=== PATIENT | female | born 1950 | race Caucasian/White ===

== ENCOUNTER 2017-12-11 17:26 | Emergency (ER) | payer MEDICARE ==
--- NOTE | 2017-12-11 18:55 | EDM.PDOC ---
ED HPI GENERAL MEDICAL PROBLEM - General Chief Complaint: Lower Extremity Injury/Pain Stated Complaint: LEFT KNEE PAIN Time Seen by Provider: 12/11/17 18:45 Source of Information: Reports: Patient History Limitations: Reports: Intoxication - History of Present Illness INITIAL COMMENTS - FREE TEXT/NARRATIVE: 67-year-old female injured her left knee 2 hours ago, she twisted it and developed a sharp pain and now has difficulty bearing weight. No significant swelling. No significant previous knee problems. No other injury. Onset: Sudden Duration: Hour(s): (2 hours ago) Location: Reports: Lower Extremity, Left Quality: Reports: Sharp, Stabbing Severity: Moderate Worsens with: Reports: Other (Weightbearing), Movement Associated Symptoms: Reports: No Other Symptoms Left Knee Pain Score (Numeric/FACES): 10 - Related Data Allergies Allergy/AdvReac Type Severity Reaction Status Date / Time No Known Allergies Allergy Verified 12/11/17 18:15 Home Meds: Home Meds Aspirin [[place] Aspirin] 81 mg PO DAILY 12/11/17 [History] Lisinopril/Hydrochlorothiazide [Lisinopril-Hctz 20-12.5 mg Tab] 1 each PO DAILY 12/11/17 [History] Metoprolol Tartrate 10 mg PO DAILY 12/11/17 [History] atorvaSTATin [Lipitor] 20 mg PO DAILY 12/11/17 [History] Past Medical History Cardiovascular History: Reports: High Cholesterol, Hypertension [employer] History: Reports: Musculoskeletal History: Reports: Fracture Other Musculoskeletal History: fx toes bilateral feet Oncologic (Cancer) History: Reports: Other (See Below) Other Oncologic History: CLL - Past Surgical History Cardiovascular Surgical History: Reports: Coronary Artery Stent GI Surgical History: Reports: Colonoscopy Female Surgical History: Reports: Hysterectomy Social & Family History - Tobacco Use Smoking Status *Q: Current Every Day Smoker Years of Tobacco use: 45 Packs/Tins Daily: 0.5 Used Tobacco, but Quit: No Second Hand Smoke Exposure: Yes - Caffeine Use Caffeine Use: Reports: Coffee, Tea - Recreational Drug Use Recreational Drug Use: Yes Recreational Drug Type: Reports: Marijuana/Hashish Recreational Drug Use Frequency: Socially Review of Systems - Review of Systems Review Of Systems: See Below Constitutional: Denies: Fever Respiratory: Denies: Shortness of Breath Cardiovascular: Denies: Chest Pain GI/Abdominal: Denies: Abdominal Pain, Nausea, Vomiting Skin: Reports: No Symptoms Neurological: Reports: No Symptoms ED EXAM, GENERAL - Physical Exam Exam: See Below Exam Limited By: No Limitations General Appearance: Alert, No Apparent Distress Respiratory/Chest: No Respiratory Distress Cardiovascular: Regular Rate, Rhythm Extremities: Other (Exam is otherwise limited to the lower extremities. Comparing the knees she has slight swelling of the left knee but no significant effusion. Patella tracks normally, she has no medial joint line tenderness but is fairly tender along the lateral joint line and lateral anterior tibial plateau.) Course - Vital Signs Last Recorded V/S: Last Vital Signs Temp 99.6 F 12/11/17 18:26 Pulse 86 12/11/17 18:26 Resp 16 12/11/17 18:26 BP 140/59 L 12/11/17 18:26 Pulse Ox 99 12/11/17 18:26 - Orders/Labs/Meds Orders: Active Orders 24 hr Category Date Time Status Knee 3V Lt [CR] Stat Exams 12/11/17 18:50 Taken DME for Discharge [COMM] Stat Oth 12/11/17 19:28 Ordered - Re-Assessments/Exams Free Text/Narrative Re-Assessment/Exam: 12/11/17 18:55 Left knee x-ray was obtained. 12/11/17 19:29 X-ray showed no fracture or significant effusion. Patient has a neoprene sleeve knee stabilizer, she is going to wear that for support and she was supplied crutches and will recheck with Leonel Stock on . Departure - Departure Time of Disposition: 19:43 Disposition: Home, Self-Care 01 Condition: Good Clinical Impression: Left knee sprain Qualifiers: Encounter type: initial encounter Involved ligament of knee: unspecified ligament Qualified Code(s): S83.92XA - Sprain of unspecified site of left knee, initial encounter - Discharge Information Instructions: Knee Sprain, Adult, [id number] Referrals: PCP,None [Primary Care Provider] - Forms: ED Department Discharge Care Plan Goals: Use crutches to help with ambulation over the next several days, wear knee sleeve for support and recheck with Dr. Leonel Stock at the hospital on . Ibuprofen or naproxen should help with discomfort. - My Orders Last 24 Hours: My Active Orders 12/11/17 18:50 Knee 3V Lt [CR] Stat 12/11/17 19:28 DME for Discharge [COMM] Stat - Assessment/Plan Last 24 Hours: My Active Orders 12/11/17 18:50 Knee 3V Lt [CR] Stat 12/11/17 19:28 DME for Discharge [COMM] Stat
--- NOTE | 2017-12-12 09:28 | CR ---
Knee 3V Lt INDICATION: twisted, injured FINDINGS: Mild medial compartment narrowing. Left knee otherwise negative. No acute fracture.
== END 2017-12-11 19:45 | disposition home or self-care (01) ==
LOC: JP.ED 17:26
DX: S83.92XA Sprain of unspecified site of left knee, initial encounter (principal); E78.00 Pure hypercholesterolemia, unspecified; I10 Essential (primary) hypertension; F17.210 Nicotine dependence, cigarettes, uncomplicated; Z90.710 Acquired absence of both cervix and uterus; Z79.82 Long term (current) use of aspirin; Z79.899 Other long term (current) drug therapy; X50.1XXA Overexertion from prolonged static or awkward postures, initial encounter
CPT/HCPCS: 73562-26-LT; 73562-LT; 99284